=== PATIENT | male | born 1960 ===

== ENCOUNTER 2019-11-25 10:23 | Emergency (ER) | payer BC ==
[2019-11-25] MEDS ORDERED: Sodium Chloride 0.9% 10 ML Syringe FLUSH PRN (10:34)
[2019-11-25] MEDS ORDERED: ceFAZolin 2 GM in Premix Bag 1 BAG IV ONE (10:35)
[2019-11-25] MEDS ORDERED: Diphtheria,Pertussis(Acell),Tetanus Vaccine 0.5 ML Syringe IM ONE (10:35)
[2019-11-25] MEDS ORDERED: HYDROmorphone 1 MG/ML Syringe IVPUSH ONE ×2 (10:35→11:34)
[2019-11-25] MEDS ORDERED: Ondansetron 4 MG/2 ML SDV IVPUSH ONE (10:38)
--- NOTE | 2019-11-25 11:00 | EDM.PDOC ---
ED HPI GENERAL MEDICAL PROBLEM - General Chief Complaint: Laceration Stated Complaint: LT HAND FINGER LAC Time Seen by Provider: 11/25/19 10:34 Source of Information: Reports: Patient History Limitations: Reports: No Limitations - History of Present Illness INITIAL COMMENTS - FREE TEXT/NARRATIVE: The patient presents with a left hand laceration. He was using his table saw and a piece of wood kicked back and he got his left hand in the saw. He cut the tips of 3 fingers. He is right handed. He is not sure of his last tetanus. He has no other injuries. Onset: Sudden Duration: Minutes: Location: Reports: Upper Extremity, Left (hand) Quality: Reports: Sharp Severity: Severe Improves with: Reports: None Worsens with: Reports: None Associated Symptoms: Reports: No Other Symptoms - Related Data Allergies Allergy/AdvReac Type Severity Reaction Status Date / Time dexlansoprazole Allergy Swelling Verified 12/24/13 08:57 [From Dexilant] omeprazole Allergy Mouth Sores Verified 12/24/13 08:57 Home Meds: Home Meds Pantoprazole [ProTONIX] 40 mg PO BID 12/24/13 [History] Ranitidine [Zantac] 150 mg PO BID 12/24/13 [History] Sucralfate [Carafate] 1 gm PO QID 12/24/13 [History] ED ROS GENERAL - Review of Systems Review Of Systems: See Below Constitutional: Reports: No Symptoms HEENT: Reports: No Symptoms Respiratory: Reports: No Symptoms Cardiovascular: Reports: No Symptoms Endocrine: Reports: No Symptoms GI/Abdominal: Reports: No Symptoms : Reports: No Symptoms Musculoskeletal: Reports: Other (Left hand injury) ED EXAM, SKIN/RASH Exam: See Below Exam Limited By: No Limitations General Appearance: Alert, No Apparent Distress Ears: Normal External Exam Nose: Normal Inspection Head: Atraumatic, Normocephalic Neck: Normal Inspection Respiratory/Chest: No Respiratory Distress Extremities: Other (lacerations with tissue missing to the tips of the 2nd, 3rd and 4th digits) Neurological: Alert, Oriented, No Motor/Sensory Deficits ED SKIN PROCEDURES - Splinting Left Upper Extremity Splint Site: Left hand Pre-Procedure NV Status: Normal Post-Procedure NV Status: Normal Splint Material: Fiberglass Splint Design: Volar Applied & Form Fitted By: Provider Provider Post-Splint Application NV Check: NV Status Normal, Good Position Complications: No Course - Orders/Labs/Meds Orders: Active Orders 24 hr Category Date Time Status Peripheral IV Care [RC] . DIRECTED Care 11/25/19 10:34 Active Vaccines to be Administered [RC] PER UNIT ROUTINE Care 11/25/19 10:35 Active Hand Comp Min 3V Lt [CR] Stat Exams 11/25/19 10:35 Taken Sodium Chloride 0.9% [Saline Flush] Med 11/25/19 10:34 Active 10 ml FLUSH ASDIRECTED PRN Peripheral IV Insertion Adult [OM.PC] Routine Oth 11/25/19 10:34 Ordered Medication Orders Sodium Chloride (Saline Flush) 10 ml FLUSH ASDIRECTED PRN PRN Reason: Keep Vein Open Meds: Medications Generic Name Dose Route Start Last Admin Trade Name Freq PRN Reason Stop Dose Admin Sodium Chloride 10 ml 11/25/19 10:34 Saline Flush FLUSH ASDIRECTED PRN Keep Vein Open Discontinued Medications Generic Name Dose Route Start Last Admin Trade Name Freq PRN Reason Stop Dose Admin Diphtheria/Tetanus/Acell Pertussis 0.5 ml 11/25/19 10:35 Adacel IM 11/25/19 10:36 .ONCE ONE Hydromorphone HCl 1 mg 11/25/19 10:35 Dilaudid IVPUSH 11/25/19 10:36 ONETIME ONE Hydromorphone HCl 1 mg 11/25/19 11:34 Dilaudid IVPUSH 11/25/19 11:35 ONETIME ONE Cefazolin Sodium/Dextrose 2 gm 50 mls @ 100 mls/hr 11/25/19 10:35 / Premix IV 11/25/19 11:04 ONETIME ONE Ondansetron HCl 4 mg 11/25/19 10:38 Zofran IVPUSH 11/25/19 10:39 ONETIME ONE - Re-Assessments/Exams Free Text/Narrative Re-Assessment/Exam: 11/25/19 10:59 I ordered an IV saline lock, ancef 2 grams IV, dilaudid 1mg IV, tetanus and an x-ray of his left hand. 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 I am not sure I can repair them here. I called [facility] in [place] and talked with Dr Murphy the hand surgeon taxation agent and she wanted the patient sent to the ER at [facility]. Departure - Departure Time of Disposition: 12:00 Disposition: Home, Self-Care 01 Condition: Good Clinical Impression: Open fracture of finger of left hand Qualifiers: Encounter type: initial encounter Finger: index finger Phalanx: distal Fracture alignment: nondisplaced Qualified Code(s): S62.661B - Nondisplaced fracture of distal phalanx of left index finger, initial encounter for open fracture Laceration of left index finger Qualifiers: Encounter type: initial encounter Damage to nail status: with damage Foreign body presence: without foreign body Qualified Code(s): S61.311A - Laceration without foreign body of left index finger with damage to nail, initial encounter Laceration of left middle finger Qualifiers: Encounter type: initial encounter Damage to nail status: with damage Foreign body presence: without foreign body Qualified Code(s): S61.313A - Laceration without foreign body of left middle finger with damage to nail, initial encounter Laceration of left ring finger Qualifiers: Encounter type: initial encounter Damage to nail status: with damage Foreign body presence: without foreign body Qualified Code(s): S61.315A - Laceration without foreign body of left ring finger with damage to nail, initial encounter - Discharge Information *PRESCRIPTION DRUG MONITORING PROGRAM REVIEWED*: Not Applicable *COPY OF PRESCRIPTION DRUG MONITORING REPORT IN PATIENT NAHUN: Not Applicable Referrals: Zuri Telles, PIECE GOODS CLERK [Primary Care Provider] - Forms: ED Department Discharge Additional Instructions: Go directly to [facility] in [place]. Do not eat or drink anything on the way. - My Orders Last 24 Hours: My Active Orders 11/25/19 10:34 Peripheral IV Care [RC] . DIRECTED Sodium Chloride 0.9% [Saline Flush] 10 ml FLUSH ASDIRECTED PRN Peripheral IV Insertion Adult [OM.PC] Routine 11/25/19 10:35 Vaccines to be Administered [RC] PER UNIT ROUTINE Hand Comp Min 3V Lt [CR] Stat - Assessment/Plan Last 24 Hours: My Active Orders 11/25/19 10:34 Peripheral IV Care [RC] . DIRECTED Sodium Chloride 0.9% [Saline Flush] 10 ml FLUSH ASDIRECTED PRN Peripheral IV Insertion Adult [OM.PC] Routine 11/25/19 10:35 Vaccines to be Administered [RC] PER UNIT ROUTINE Hand Comp Min 3V Lt [CR] Stat
--- NOTE | 2019-11-25 12:39 | CR ---
Left hand: 4 views of the left hand were obtained. Comparison: No prior hand study. Moderate degenerative change is noted within the CMC joint of the thumb. Soft tissue injury is noted within the distal second, third and fourth fingers. Bony injury is noted within the distal idris of the same fingers. No proximal bony abnormality is seen. Impression: 1. Soft tissue and bony injury to the distal second through fourth fingers. 2. Degenerative change as noted above. Diagnostic code #3 This report was dictated in MDT
[2019-11-25] MEDS ORDERED: Metoclopramide 10 MG/2 ML SDV IVPUSH ONE (12:41)
== END 2019-11-25 13:20 | disposition home or self-care (01) ==
LOC: JD.ED 10:23
DX: S62.661B Nondisplaced fracture of distal phalanx of left index finger, initial encounter for open fracture (principal); Z23 Encounter for immunization; Z88.8 Allergy status to other drugs, medicaments and biological substances; Z79.899 Other long term (current) drug therapy; W27.0XXA Contact with workbench tool, initial encounter
CPT/HCPCS: 29125; 73130; 90471; 90715; 96365; 96375; 99285; J0690; J1170; J2405; J2765; 99284